=== PATIENT | male | born 1955 | race Caucasian/White ===

== ENCOUNTER 2017-03-12 11:32 | Emergency (ER) | payer BC ==
[~2017-03-12] VITALS: Ht 177.8 cm; Wt 73.1 kg
[~2017-03-12 11:32] MED LIST: AMLODIPINE BESY10 MG PO; CIALIS5 MG PO; CLONIDINE HCL0.1 MG PO; EFFEXOR75 MG PO; HYDROCODON-ACE1 EAC5 PO; LISINOPRIL-HCT1 EAC3 PO; LOMOTIL TABLET1 EACH PO; LUPRON DEPOT45 MG IM; NAPROSYN500 MG PO; NORCO 5/3251 TABLET PO; PYRIDIUM100 MG PO; TRAZODONE HCL50 MG PO; TRIBENZOR 20-51 EAC1 PO
[2017-03-12 12:37] LABS: HEMATOCRIT 39.1 % (38.0-50.0); HEMOGLOBIN 13.6 G/DL (12.5-16.6); MCH 31.1 PG (29.0-34.0); MCHC 34.8 G/DL (30.0-36.0); MCV 89.5 FL (86-99); PLATELET COUNT 158 K/uL (156-360); RBC DIS.WIDTH-CV 13.6 % (11.8-14.6); RBC DIS.WIDTH-SD 44.5 % (39-53); RED BLOOD COUNT 4.37 M/uL (4.00-5.50); WHITE BLOOD COUNT 6.2 K/uL (4.1-10.2)
[2017-03-12 12:42] LABS: CHLORIDE 109 mEq/L (99-109); POTASSIUM 4.1 mEq/L (3.7-5.4); SODIUM 140 mEq/L (136-147)
[2017-03-12 12:43] LABS: GLUCOSE 92 mg/dL (70-99)
[2017-03-12 12:47] LABS: CREATININE 1.3 mg/dL (0.6-1.3); GFR ESTIMATE (CALCULATED) > 59 mL/min/ (58.99-99999)
[2017-03-12 12:48] LABS: UREA NITROGEN (BUN) 19 mg/dL (9-23)
[2017-03-12 15:45] VITALS: BP 145/91
== END 2017-03-12 15:50 | disposition home or self-care (01) ==
LOC: EME 11:32
PROVIDERS: Emergency Medicine
DX: R42 Dizziness and giddiness (principal); I10 Essential (primary) hypertension; M54.2 Cervicalgia; G89.29 Other chronic pain; Z91.14 Patient's other noncompliance with medication regimen; F17.200 Nicotine dependence, unspecified, uncomplicated; Z86.73 Personal history of transient ischemic attack (TIA), and cerebral infarction without residual deficits
CPT/HCPCS: 70450; 71046; 72125; 80048; 85027; 87502; 93005; 99281; 99284; J3010